=== PATIENT | male | born 1995 | race African-American/Black ===

== ENCOUNTER 2018-10-06 13:18 | Emergency (ER) | payer SELFPAY ==
[~2018-10-06] VITALS: Ht 172.7 cm; Wt 65.0 kg
[2018-10-06 13:24] VITALS: BP 0/0
[2018-10-06] MEDS ORDERED: NALOXONE HCL 1 MG/ML 2ML VIAL ONE (13:38)
== END 2018-10-06 15:13 | disposition home or self-care (01) ==
LOC: ER 14:22
DX: S09.8XXA Other specified injuries of head, initial encounter; Y35.893A Legal intervention involving other specified means, suspect injured, initial encounter; Y93.89 Activity, other specified; Y92.89 Other specified places as the place of occurrence of the external cause
CPT/HCPCS: 99283; J2310